=== PATIENT | female | born 1995 | race Caucasian/White ===

== ENCOUNTER 2016-09-30 11:18 | Emergency (ER) | payer BC, OTHER ==
[2016-09-30 11:28] VITALS: BP 137/95
[2016-09-30] MEDS ORDERED: Ondansetron 4 MG/2 ML SDV IV ONE (12:07)
[2016-09-30] MEDS ORDERED: Acetaminophen/HYDROcodone 325-10 MG Tab PO ONE (12:08)
--- NOTE | 2016-09-30 12:14 | EDM.PDOC ---
ED HPI GI/ABDOMINAL - General Chief Complaint: Abdominal Pain Stated Complaint: GAL BLADDER PROBLEM Time Seen by Provider: 09/30/16 12:00 Source of Information: Reports: Patient History Limitations: Reports: No limitations - History of Present Illness INITIAL COMMENTS - FREE TEXT/NARRATIVE: This 20 yo female patient reports to the ED with increased pain in her right upper quadrant. The patient reports she has surgery scheduled fro 10/04/16, but has been in too much pain to wait that long. The patient reports she has been seen through [facility], but was not given any pain medications from that facility. The patient reports the last time she was in the ED she was given IV Dilaudid which worked and some Hydrocodone which worked for her pain. The patient also reports oxycodone works for her pain. The patient reports she has been very nauseated and does not believe she can keep anything down in her stomach. Timing/Duration: Reports: Constant, Getting worse Location: RUQ Quality: Reports: ache Severity: severe Associated Symptoms (-Female): Reports: denies other symptoms Treatments ACUPRESSURIST: Reports: Acetaminophen - Related Data Allergies/ADRs: Allergies Allergy/AdvReac Type Severity Reaction Status Date / Time cephalexin [From Keflex] Allergy Hallucinati Verified 09/30/16 11:29 ons metronidazole [From Flagyl] Allergy Vomiting Verified 09/30/16 11:29 Home Meds: Home Meds FLUoxetine HCl [Prozac] 30 mg PO DAILY 09/01/16 [History] Fluticasone Propionate [Flovent HFA 220 MCG] 220 mcg INH BID 09/01/16 [History] Methylphenidate HCl [Methylphenidate HCl ER] 50 mg PO DAILY 09/01/16 [History] Past Medical History HEENT History: Reports: Impaired vision Respiratory History: Reports: Asthma Gastrointestinal History: Reports: Gastritis, GERD Genitourinary History: Reports: Renal calculus, UTI, recurrent Musculoskeletal History: Reports: Fracture Other Musculoskeletal History: Fr. rt. tib. and left knuckle. Neurological History: Reports: Concussion Psychiatric History: Reports: ADD, Anxiety, Depression Dermatologic History: Reports: Eczema - Infectious Disease History Infectious Disease History: Reports: Chicken pox - Past Surgical History GI Surgical History: Reports: Appendectomy Social & Family History - Family History Family Medical History: Noncontributory - Tobacco Use Smoking Status *Q: Never Smoker Second Hand Smoke Exposure: No - Caffeine Use Caffeine Use: Reports: Coffee - Recreational Drug Use Recreational Drug Use: No ED ROS GENERAL - Review of Systems Review Of Systems: ROS reveals no pertinent complaints other than HPI. ED EXAM, GI/ABD - Physical Exam Exam: See Below Exam Limited By: No limitations General Appearance: alert, WD/WN, moderate distress Eyes: bilateral: normal appearance, EOMI Ears: normal external exam, normal canal, hearing grossly normal, normal TMs Nose: normal inspection, normal mucosa, no blood Throat/Mouth: Normal inspection, Normal lips, Normal teeth, Normal gums, Normal oropharynx, Normal voice, No airway compromise Head: atraumatic, normocephalic Neck: normal inspection, supple, non-tender, full range of motion Respiratory/Chest: no respiratory distress, lungs clear, normal breath sounds, no accessory muscle use, chest non-tender Cardiovascular: normal peripheral pulses, regular rate, rhythm, no edema, no gallop, no JVD, no murmur, no rub GI/Abdominal: normal bowel sounds, no organomegaly, no distention, no abnormal bruit, no mass, tenderness (RUQ) (Female) Exam: Deferred Rectal (Female) Exam: Deferred Back Exam: normal inspection, full range of motion, CVA tenderness (R) Extremities: normal inspection, normal range of motion, non-tender, normal capillary refill, no pedal edema Neurological: alert, oriented, CN II-XII intact, normal cognition, normal gait, normal reflexes, no motor/sensory deficits Psychiatric: normal affect, normal mood Skin Exam: Warm, Dry, Intact, Normal color, No rash Lymphatic: no adenopathy Course - Vital Signs Last Recorded V/S: Last Vital Signs Temp 37.7 C 09/30/16 11:28 Pulse 95 09/30/16 11:28 Resp 20 09/30/16 11:28 BP 137/95 H 09/30/16 11:28 Pulse Ox 100 09/30/16 11:28 - Orders/Labs/Meds Labs: Laboratory Tests 09/30/16 09/30/16 Range/Units 12:15 12:15 Urine Color Yellow (YELLOW) Urine Appearance Slightly cloudy (CLEAR) Urine pH 7.0 (5.0-9.0) Ur Specific [place] 1.015 (1.005-1.030) Urine Protein Negative (NEGATIVE) Urine Glucose (UA) Negative (NEGATIVE) Urine Ketones Negative (NEGATIVE) Urine Occult Blood Small H (NEGATIVE) Urine Nitrite Negative (NEGATIVE) Urine Bilirubin Negative (NEGATIVE) Urine Urobilinogen 0.2 (0.2-1.0) mg/dL Ur Leukocyte Esterase Moderate H (NEGATIVE) Urine RBC 0-5 /HPF Urine WBC 10-20 H (0-5/HPF) /HPF Ur Epithelial Cells Moderate H /HPF Urine Bacteria Moderate H (0-FEW/HPF) /HPF Urine Mucus Few H /LPF Urine Opiates Screen Positive H (NEGATIVE) Ur Oxycodone Screen Negative (NEGATIVE) Urine Methadone Screen Negative (NEGATIVE) Ur Barbiturates Screen Negative (NEGATIVE) U Tricyclic Antidepress Negative (NEGATIVE) Ur Phencyclidine Scrn Negative (NEGATIVE) Ur Amphetamine Screen Negative (NEGATIVE) U Methamphetamines Scrn Negative (NEGATIVE) Urine MDMA Screen Negative (NEGATIVE) U Benzodiazepines Scrn Negative (NEGATIVE) Urine Cocaine Screen Negative (NEGATIVE) U Marijuana (THC) Screen Negative (NEGATIVE) Meds: Medications Discontinued Medications Generic Name Dose Route Start Last Admin Trade Name [place] PRN Reason Stop Dose Admin Acetaminophen/Hydrocodone Bitart 1 tab 09/30/16 12:08 09/30/16 12:42 [place] 325-10 Mg PO 09/30/16 12:09 1 tab ONETIME ONE Administration Ondansetron HCl 4 mg 09/30/16 12:07 09/30/16 12:27 Zofran IV 09/30/16 12:08 4 mg ONETIME ONE Administration - Re-Assessments/Exams Free Text/Narrative Re-Assessment/Exam: 09/30/16 13:09 When the patient was advised of the drug screen results, the patient admitted to getting narcotics from the [place] ED last week. Departure - Departure Time of Disposition: 13:07 Disposition: Home, Self-Care 01 Condition: fair Clinical Impression: Abdominal pain Qualifiers: Abdominal location: right upper quadrant Qualified Code(s): R10.11 - Right upper quadrant pain Instructions: Abdominal Pain, Adult, [id number] Forms: ED Department Discharge Care Plan Goals: The patient was advised of the examination and lab results during the visit. The patient was given an IV dose of Zofran and an oral dose of [place] (10/325) while in the ED. The patient was encouraged to follow-up with her primary care facility or with her surgeon for any additional symptoms or concerns.
== END 2016-09-30 13:20 | disposition home or self-care (01) ==
LOC: DL.ED 11:18
DX: R10.11 Right upper quadrant pain (principal); J45.909 Unspecified asthma, uncomplicated; K21.9 Gastro-esophageal reflux disease without esophagitis; Z87.440 Personal history of urinary (tract) infections; F41.9 Anxiety disorder, unspecified; F32.9 Major depressive disorder, single episode, unspecified; Z90.49 Acquired absence of other specified parts of digestive tract; Z79.899 Other long term (current) drug therapy; Z88.1 Allergy status to other antibiotic agents
CPT/HCPCS: 80305; 81001; 99283; A9270; J2405

== ENCOUNTER 2017-05-11 15:59 | Emergency (ER) | payer BC, OTHER ==
[2017-05-11] MEDS ORDERED: HYDROmorphone 1 MG/ML Syringe IVPUSH ONE ×3 (16:26→20:18)
[2017-05-11] MEDS ORDERED: Sodium Chloride 0.9% 1,000 ML IV ONE (16:26)
[2017-05-11] MEDS ORDERED: Ondansetron 4 MG/2 ML SDV IV ONE (16:26)
--- NOTE | 2017-05-11 16:28 | EDM.PDOC ---
<Dontrell Gaoan - Last Filed: 05/11/17 18:58> ED HPI GENERAL MEDICAL PROBLEM - General Chief Complaint: Flank Pain Stated Complaint: infection [id number] Time Seen by Provider: 05/11/17 16:18 Source of Information: Reports: Patient History Limitations: Reports: No Limitations - History of Present Illness INITIAL COMMENTS - FREE TEXT/NARRATIVE: 21 yo white female c/o bilateral flank pain since this AM. Pt. states felt sick last PM Bilateral Flank Pain Score (Numeric/FACES): 8 - Related Data Allergies Allergy/AdvReac Type Severity Reaction Status Date / Time cephalexin [From Keflex] Allergy Hallucinati Verified 05/11/17 16:05 ons metronidazole [From Flagyl] Allergy Vomiting Verified 05/11/17 16:05 Home Meds: Home Meds Fluticasone Propionate [Flovent HFA 220 MCG] 220 mcg INH BID 09/01/16 [History] Methylphenidate HCl [Methylphenidate HCl ER] 50 mg PO DAILY 09/01/16 [History] Diazepam [Valium] 5 mg PO ONETIME PRN 05/11/17 [History] QUEtiapine Fumarate [Seroquel Xr] 150 mg PO 05/11/17 [History] Venlafaxine [Effexor XR] 150 mg PO DAILY 05/11/17 [History] Venlafaxine [Effexor] 37.5 mg PO DAILY 05/11/17 [History] Past Medical History HEENT History: Reports: Impaired Vision Respiratory History: Reports: Asthma Gastrointestinal History: Reports: Gastritis, GERD Genitourinary History: Reports: Renal Calculus, UTI, Recurrent Musculoskeletal History: Reports: Fracture Other Musculoskeletal History: Fr. rt. tib. and left knuckle. Neurological History: Reports: Concussion Psychiatric History: Reports: ADD, Anxiety, Depression Dermatologic History: Reports: Eczema - Infectious Disease History Infectious Disease History: Reports: Chicken Pox - Past Surgical History GI Surgical History: Reports: Appendectomy, Cholecystectomy, Other (See Below) Other GI Surgeries/Procedures: spincterotomy Social & Family History - Family History Family Medical History: Noncontributory - Tobacco Use Smoking Status *Q: Never Smoker Second Hand Smoke Exposure: No - Caffeine Use Caffeine Use: Reports: Coffee, Soda - Recreational Drug Use Recreational Drug Use: No Course - Vital Signs Last Recorded V/S: Last Vital Signs Temp 98 F 05/11/17 21:03 Pulse 111 H 05/11/17 21:03 Resp 18 05/11/17 21:03 BP 117/62 05/11/17 21:03 Pulse Ox 97 05/11/17 21:03 - Orders/Labs/Meds Labs: Laboratory Tests 05/11/17 05/11/17 05/11/17 Range/Units 16:15 16:15 17:10 WBC 10.9 H (5.0-10.0) 10^3/uL RBC 4.48 (4.2-5.4) 10^6/uL Hgb 13.4 (12.0-16.0) g/dL Hct 40.1 (37.0-47.0) % MCV 89.5 (80-100) fL MCH 29.9 (27.0-34.0) pg MCHC 33.4 (33.0-35.0) g/dL Plt Count 307 (150-450) 10^3/uL Neut % (Auto) 77.0 H (42.2-75.2) % Lymph % (Auto) 16.2 L (20.5-50.1) % [place] % (Auto) 6.1 (2-8) % Eos % (Auto) 0.5 L (1.0-3.0) % Baso % (Auto) 0.2 (0.0-1.0) % Sodium (135-145) mmol/L Potassium (3.6-5.0) mmol/L Chloride (101-111) mmol/L Carbon Dioxide (21.0-31.0) mmol/L Anion Gap BUN (7-18) mg/dL Creatinine (0.6-1.3) mg/dL Est Cr Clr Drug Dosing Estimated GFR (MDRD) BUN/Creatinine Ratio Glucose (74-105) mg/dL Lactic Acid (0.5-2.2) mmol/L Calcium (8.4-10.2) mg/dl Total Bilirubin (0.2-1.0) mg/dL AST (10-42) IU/L ALT (10-60) IU/L Alkaline Phosphatase (42-121) IU/L Total Protein (6.7-8.2) g/dl Albumin (3.2-5.5) g/dl Globulin Albumin/Globulin Ratio Amylase (28-100) U/L Lipase (22-51) U/L Urine Color Light yellow (YELLOW) Urine Appearance Cloudy (CLEAR) Urine pH 8.5 (5.0-9.0) Ur Specific [place] 1.015 (1.005-1.030) Urine Protein Negative (NEGATIVE) Urine Glucose (UA) Negative (NEGATIVE) Urine Ketones Negative (NEGATIVE) Urine Occult Blood Trace-lysed H (NEGATIVE) Urine Nitrite Negative (NEGATIVE) Urine Bilirubin Negative (NEGATIVE) Urine Urobilinogen 0.2 (0.2-1.0) mg/dL Ur Leukocyte Esterase Large H (NEGATIVE) Urine RBC 0-5 /HPF Urine WBC 5-10 H (0-5/HPF) /HPF Ur Epithelial Cells Many H /HPF Urine Bacteria Few (0-FEW/HPF) /HPF Urine Mucus Moderate H /LPF Urine HCG, Qual Negative 05/11/17 05/11/17 05/11/17 Range/Units 17:10 17:10 19:49 WBC (5.0-10.0) 10^3/uL RBC (4.2-5.4) 10^6/uL Hgb (12.0-16.0) g/dL Hct (37.0-47.0) % MCV (80-100) fL MCH (27.0-34.0) pg MCHC (33.0-35.0) g/dL Plt Count (150-450) 10^3/uL Neut % (Auto) (42.2-75.2) % Lymph % (Auto) (20.5-50.1) % [place] % (Auto) (2-8) % Eos % (Auto) (1.0-3.0) % Baso % (Auto) (0.0-1.0) % Sodium 137 (135-145) mmol/L Potassium 3.8 (3.6-5.0) mmol/L Chloride 103 (101-111) mmol/L Carbon Dioxide 24.0 (21.0-31.0) mmol/L Anion Gap 13.8 BUN 8 (7-18) mg/dL Creatinine 0.6 (0.6-1.3) mg/dL Est Cr Clr Drug Dosing TNP Estimated GFR (MDRD) > 60 BUN/Creatinine Ratio 13.33 Glucose 87 (74-105) mg/dL Lactic Acid 0.5 (0.5-2.2) mmol/L Calcium 9.6 (8.4-10.2) mg/dl Total Bilirubin 0.3 (0.2-1.0) mg/dL AST 21 (10-42) IU/L ALT 15 (10-60) IU/L Alkaline Phosphatase 63 (42-121) IU/L Total Protein 8.1 (6.7-8.2) g/dl Albumin 4.5 (3.2-5.5) g/dl Globulin 3.6 Albumin/Globulin Ratio 1.25 Amylase 64 (28-100) U/L Lipase 21 L (22-51) U/L Urine Color (YELLOW) Urine Appearance (CLEAR) Urine pH (5.0-9.0) Ur Specific [place] (1.005-1.030) Urine Protein (NEGATIVE) Urine Glucose (UA) (NEGATIVE) Urine Ketones (NEGATIVE) Urine Occult Blood (NEGATIVE) Urine Nitrite (NEGATIVE) Urine Bilirubin (NEGATIVE) Urine Urobilinogen (0.2-1.0) mg/dL Ur Leukocyte Esterase (NEGATIVE) Urine RBC /HPF Urine WBC (0-5/HPF) /HPF Ur Epithelial Cells /HPF Urine Bacteria (0-FEW/HPF) /HPF Urine Mucus /LPF Urine HCG, Qual Meds: Medications Discontinued Medications Generic Name Dose Route Start Last Admin Trade Name Freq PRN Reason Stop Dose Admin Gentamicin Sulfate 170 mg 05/11/17 18:22 05/11/17 19:19 Gentamicin IV 05/11/17 18:23 170 mg ONETIME ONE Administration Hydromorphone HCl 1 mg 05/11/17 16:26 05/11/17 17:55 Dilaudid IVPUSH 05/11/17 16:27 1 mg ONETIME ONE Administration Hydromorphone HCl 1 mg 05/11/17 18:48 05/11/17 18:56 Dilaudid IVPUSH 05/11/17 18:49 1 mg ONETIME ONE Administration Hydromorphone HCl 1 mg 05/11/17 20:18 05/11/17 20:22 Dilaudid IVPUSH 05/11/17 20:19 1 mg ONETIME ONE Administration Sodium Chloride 1,000 mls @ 999 mls/hr 05/11/17 16:26 05/11/17 18:56 Normal Saline IV 05/11/17 17:26 999 mls/hr .BOLUS ONE Administration Iopamidol 75 ml 05/11/17 16:30 05/11/17 17:21 Isovue-300 (61%) IVPUSH 05/11/17 16:31 75 ml ONETIME ONE Administration Iopamidol 75 ml 05/11/17 16:39 05/11/17 20:20 Isovue-300 (61%) IVPUSH 05/11/17 16:40 Not Given ONETIME ONE Ondansetron HCl 4 mg 05/11/17 16:26 05/11/17 17:54 Zofran IV 05/11/17 16:27 4 mg ONETIME ONE Administration Departure - Departure Disposition: Home, Self-Care 01 Clinical Impression: UTI, Urinary tract infectious disease, Right lower quadrant abdominal pain - Discharge Information Instructions: Urinary Tract Infection, Adult Referrals: PCP,None [Primary Care Provider] - Forms: ED Department Discharge Additional Instructions: increase fluid intake while on antibiotic light diet x 24 hours tylenol 650mg every 4 hours as needed for discomfort cipro 500mg one twice daily for 5 days Recheck in clinic this week <Alcira Barkley - Last Filed: 05/13/17 04:00> ED ROS GENERAL - Review of Systems Review Of Systems: ROS reveals no pertinent complaints other than HPI. ED EXAM, RENAL/ - Physical Exam Exam: See Below Exam Limited By: No Limitations General Appearance: Alert, Mild Distress Eye Exam: Bilateral Eye: EOMI Ears: Normal External Exam Throat/Mouth: Normal Voice Neck: Normal Inspection, Full Range of Motion Respiratory/Chest: No Respiratory Distress GI/Abdominal: Tender (lwer abdomen greater RLQ) Course - Radiology Interpretation Free Text/Narrative:: CT Abdomen, left ovarian cyst, small amount adhesions, fluid filled bowel loops , no sign of obstruction - Re-Assessments/Exams Free Text/Narrative Re-Assessment/Exam: 05/11/17 care assumed at change of shift. Patient reported to have had IV abx initiated and awaiting CT results. Patient resting. Departure - Departure Time of Disposition: 21:01 Condition: Fair
[2017-05-11] MEDS ORDERED: Iopamidol 612 MG/ML 75 ML Bottle IVPUSH ONE ×2 (16:30→16:39)
[2017-05-11] MEDS ORDERED: Gentamicin 40 MG/ML 2 ML Vial IV ONE (18:22)
[2017-05-11 19:53] LABS: CHLORIDE,CL 103 mmol/L (101-111); SODIUM,NA 137 mmol/L (135-145)
[2017-05-11 21:04] VITALS: BP 117/62
== END 2017-05-11 21:08 | disposition home or self-care (01) ==
LOC: DL.ED 15:59
DX: N39.0 Urinary tract infection, site not specified (principal); J45.909 Unspecified asthma, uncomplicated; K21.9 Gastro-esophageal reflux disease without esophagitis; F32.9 Major depressive disorder, single episode, unspecified; Z87.442 Personal history of urinary calculi; Z90.49 Acquired absence of other specified parts of digestive tract; Z98.890 Other specified postprocedural states; Z79.899 Other long term (current) drug therapy; Z88.1 Allergy status to other antibiotic agents
CPT/HCPCS: 36415; 74177; 80053; 81001; 81025; 82150; 83605; 83690; 85025; 87086; 96361; 96374; 96375; 96376; 99284; J1170; J1580; J2405; J7030; Q9967; 87088; 87186

== ENCOUNTER 2017-05-13 15:46 | Emergency (ER) | payer BC, OTHER ==
[2017-05-13 15:57] VITALS: BP 125/86
[2017-05-13] MEDS ORDERED: Sodium Chloride 0.9% 10 ML Syringe FLUSH PRN (16:12)
[2017-05-13] MEDS ORDERED: Ondansetron 4 MG/2 ML SDV IV ONE (16:12)
[2017-05-13] MEDS ORDERED: Sodium Chloride 0.9% 1,000 ML IV ONE (16:12)
[2017-05-13] MEDS ORDERED: HYDROmorphone 1 MG/ML Syringe IVPUSH ONE (16:13)
[2017-05-13 17:05] LABS: CHLORIDE,CL 100 mmol/L (101-111); SODIUM,NA 135 mmol/L (135-145)
--- NOTE | 2017-05-13 18:06 | EDM.PDOC ---
<Shannan Fernando - Last Filed: 05/13/17 18:49> ED HPI GENERAL MEDICAL PROBLEM - General Chief Complaint: Gastrointestinal Problem Stated Complaint: [id number] SWEATING PAIN NAUSEA VOMITING CHILLS Time Seen by Provider: 05/13/17 17:15 Source of Information: Reports: Patient, RN, RN Notes Reviewed History Limitations: Reports: No Limitations - History of Present Illness INITIAL COMMENTS - FREE TEXT/NARRATIVE: Patient presents to the ER with c/o severe right abdominal/right flank pain. She states she was here on 05/11 and treated for a UTI. She states the pain has intensified and she has become nauseated and is vomiting. SHe states she has had a fever and chills as well. Onset: Gradual Location: Reports: Abdomen, Back Quality: Reports: Sharp, Stabbing Severity: Severe Improves with: Reports: None Worsens with: Reports: None Associated Symptoms: Reports: Fever/Chills, Nausea/Vomiting Right Upper Abdominal Pain Score (Numeric/FACES): 9 - Related Data Allergies Allergy/AdvReac Type Severity Reaction Status Date / Time cephalexin [From Keflex] Allergy Hallucinati Verified 05/13/17 16:05 ons metronidazole [From Flagyl] Allergy Vomiting Verified 05/13/17 16:05 Home Meds: Home Meds Fluticasone Propionate [Flovent HFA 220 MCG] 220 mcg INH BID 09/01/16 [History] Methylphenidate HCl [Methylphenidate HCl ER] 50 mg PO DAILY 09/01/16 [History] Diazepam [Valium] 5 mg PO ONETIME PRN 05/11/17 [History] QUEtiapine Fumarate [Seroquel Xr] 150 mg PO DAILY 05/11/17 [History] Venlafaxine [Effexor XR] 150 mg PO DAILY 05/11/17 [History] Venlafaxine [Effexor] 37.5 mg PO DAILY 05/11/17 [History] Past Medical History HEENT History: Reports: Impaired Vision Cardiovascular History: Reports: None Respiratory History: Reports: Asthma Gastrointestinal History: Reports: Gastritis, GERD Genitourinary History: Reports: Renal Calculus, UTI, Recurrent 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 rt. tib. and left knuckle. Neurological History: Reports: Concussion Psychiatric History: Reports: ADD, Anxiety, Depression Endocrine/Metabolic History: Reports: None Hematologic History: Reports: None Immunologic History: Reports: None Oncologic (Cancer) History: Reports: None Dermatologic History: Reports: Eczema - Infectious Disease History Infectious Disease History: Reports: Chicken Pox - Past Surgical History Head Surgeries/Procedures: Reports: None GI Surgical History: Reports: Appendectomy, Cholecystectomy, Other (See Below) Other GI Surgeries/Procedures: spincterotomy Social & Family History - Family History Family Medical History: Noncontributory - Tobacco Use Smoking Status *Q: Never Smoker Second Hand Smoke Exposure: No - Caffeine Use Caffeine Use: Reports: Coffee, Soda - Recreational Drug Use Recreational Drug Use: No ED ROS GENERAL - Review of Systems Review Of Systems: ROS reveals no pertinent complaints other than HPI. ED EXAM, RENAL/ - Physical Exam Exam: See Below Exam Limited By: No Limitations General Appearance: Alert, WD/WN, Anxious, Moderate Distress Eye Exam: Bilateral Eye: Normal Inspection, PERRL Ears: Normal External Exam, Hearing Grossly Normal Nose: Normal Inspection Throat/Mouth: Normal Inspection, Normal Lips, Normal Teeth, Normal Gums, Normal Oropharynx, Normal Voice, No Airway Compromise Head: Atraumatic, Normocephalic Neck: Normal Inspection, Supple, Non-Tender, Full Range of Motion Respiratory/Chest: No Respiratory Distress, Lungs Clear, Normal Breath Sounds, No Accessory Muscle Use, Chest Non-Tender Cardiovascular: Normal Peripheral Pulses, Regular Rate, Rhythm, No Edema, No Gallop, No JVD, No Murmur, No Rub GI/Abdominal: Normal Bowel Sounds, Rigid, Tender (Female) Exam: Deferred Rectal (Female) Exam: Deferred Back Exam: Normal Inspection, CVA Tenderness (R) Extremities: Normal Inspection, Normal Range of Motion, Non-Tender, No Pedal Edema, Normal Capillary Refill Neurological: Alert, Oriented, Normal Cognition, No Motor/Sensory Deficits Psychiatric: Anxious Skin Exam: Warm, Dry, Intact, Normal Color, No Rash Lymphatic: No Adenopathy Course - Vital Signs Last Recorded V/S: Last Vital Signs Temp 37.2 C 05/13/17 15:56 Pulse 120 H 05/13/17 15:56 Resp 16 05/13/17 15:56 BP 125/86 05/13/17 15:56 Pulse Ox 100 05/13/17 15:56 - Orders/Labs/Meds Orders: Active Orders 24 hr Category Date Time Status Peripheral IV Care [RC] . DIRECTED Care 05/13/17 16:12 Active Sodium Chloride 0.9% [Saline Flush] Med 05/13/17 16:12 Active 10 ml FLUSH ASDIRECTED PRN Peripheral IV Insertion Adult [OM.PC] Stat Oth 05/13/17 16:12 Ordered Medication Orders Sodium Chloride (Saline Flush) 10 ml FLUSH ASDIRECTED PRN PRN Reason: Keep Vein Open Last Admin: 05/13/17 16:49 Dose: 10 ml Labs: Laboratory Tests 05/13/17 05/13/17 05/13/17 Range/Units 16:27 16:27 16:40 WBC 10.1 H (5.0-10.0) 10^3/uL RBC 4.79 (4.2-5.4) 10^6/uL Hgb 14.3 (12.0-16.0) g/dL Hct 42.7 (37.0-47.0) % MCV 89.1 (80-100) fL MCH 29.9 (27.0-34.0) pg MCHC 33.5 (33.0-35.0) g/dL Plt Count 234 (150-450) 10^3/uL Neut % (Auto) 81.7 H (42.2-75.2) % Lymph % (Auto) 13.6 L (20.5-50.1) % [place] % (Auto) 4.2 (2-8) % Eos % (Auto) 0.3 L (1.0-3.0) % Baso % (Auto) 0.2 (0.0-1.0) % Sodium (135-145) mmol/L Potassium (3.6-5.0) mmol/L Chloride (101-111) mmol/L Carbon Dioxide (21.0-31.0) mmol/L Anion Gap BUN (7-18) mg/dL Creatinine (0.6-1.3) mg/dL Est Cr Clr Drug Dosing mL/min Estimated GFR (MDRD) BUN/Creatinine Ratio Glucose (74-105) mg/dL Calcium (8.4-10.2) mg/dl Total Bilirubin (0.2-1.0) mg/dL AST (10-42) IU/L ALT (10-60) IU/L Alkaline Phosphatase (42-121) IU/L Total Protein (6.7-8.2) g/dl Albumin (3.2-5.5) g/dl Globulin Albumin/Globulin Ratio Urine Color Yellow (YELLOW) Urine Appearance Cloudy (CLEAR) Urine pH 7.0 (5.0-9.0) Ur Specific [place] 1.020 (1.005-1.030) Urine Protein Negative (NEGATIVE) Urine Glucose (UA) Negative (NEGATIVE) Urine Ketones Trace H (NEGATIVE) Urine Occult Blood Trace-intact H (NEGATIVE) Urine Nitrite Negative (NEGATIVE) Urine Bilirubin Negative (NEGATIVE) Urine Urobilinogen 0.2 (0.2-1.0) mg/dL Ur Leukocyte Esterase Moderate H (NEGATIVE) Urine RBC 5-10 H /HPF Urine WBC 40-50 H (0-5/HPF) /HPF Ur Epithelial Cells Moderate H /HPF Urine Bacteria Moderate H (0-FEW/HPF) /HPF Urine Mucus Rare /LPF Urine Yeast Rare H (0/HPF) /HPF Urine Opiates Screen Negative (NEGATIVE) Ur Oxycodone Screen Negative (NEGATIVE) Urine Methadone Screen Negative (NEGATIVE) Ur Barbiturates Screen Negative (NEGATIVE) U Tricyclic Antidepress Negative (NEGATIVE) Ur Phencyclidine Scrn Negative (NEGATIVE) Ur Amphetamine Screen Negative (NEGATIVE) U Methamphetamines Scrn Negative (NEGATIVE) Urine MDMA Screen Negative (NEGATIVE) U Benzodiazepines Scrn Positive H (NEGATIVE) Urine Cocaine Screen Negative (NEGATIVE) U Marijuana (THC) Screen Negative (NEGATIVE) 05/13/17 Range/Units 16:40 WBC (5.0-10.0) 10^3/uL RBC (4.2-5.4) 10^6/uL Hgb (12.0-16.0) g/dL Hct (37.0-47.0) % MCV (80-100) fL MCH (27.0-34.0) pg MCHC (33.0-35.0) g/dL Plt Count (150-450) 10^3/uL Neut % (Auto) (42.2-75.2) % Lymph % (Auto) (20.5-50.1) % [place] % (Auto) (2-8) % Eos % (Auto) (1.0-3.0) % Baso % (Auto) (0.0-1.0) % Sodium 135 (135-145) mmol/L Potassium 3.5 L (3.6-5.0) mmol/L Chloride 100 L (101-111) mmol/L Carbon Dioxide 21.0 (21.0-31.0) mmol/L Anion Gap 17.5 BUN 6 L (7-18) mg/dL Creatinine 0.7 (0.6-1.3) mg/dL Est Cr Clr Drug Dosing 90.55 mL/min Estimated GFR (MDRD) > 60 BUN/Creatinine Ratio 8.57 Glucose 91 (74-105) mg/dL Calcium 9.7 (8.4-10.2) mg/dl Total Bilirubin 0.7 (0.2-1.0) mg/dL AST 25 (10-42) IU/L ALT 21 (10-60) IU/L Alkaline Phosphatase 72 (42-121) IU/L Total Protein 8.9 H (6.7-8.2) g/dl Albumin 5.0 (3.2-5.5) g/dl Globulin 3.9 Albumin/Globulin Ratio 1.28 Urine Color (YELLOW) Urine Appearance (CLEAR) Urine pH (5.0-9.0) Ur Specific [place] (1.005-1.030) Urine Protein (NEGATIVE) Urine Glucose (UA) (NEGATIVE) Urine Ketones (NEGATIVE) Urine Occult Blood (NEGATIVE) Urine Nitrite (NEGATIVE) Urine Bilirubin (NEGATIVE) Urine Urobilinogen (0.2-1.0) mg/dL Ur Leukocyte Esterase (NEGATIVE) Urine RBC /HPF Urine WBC (0-5/HPF) /HPF Ur Epithelial Cells /HPF Urine Bacteria (0-FEW/HPF) /HPF Urine Mucus /LPF Urine Yeast (0/HPF) /HPF Urine Opiates Screen (NEGATIVE) Ur Oxycodone Screen (NEGATIVE) Urine Methadone Screen (NEGATIVE) Ur Barbiturates Screen (NEGATIVE) U Tricyclic Antidepress (NEGATIVE) Ur Phencyclidine Scrn (NEGATIVE) Ur Amphetamine Screen (NEGATIVE) U Methamphetamines Scrn (NEGATIVE) Urine MDMA Screen (NEGATIVE) U Benzodiazepines Scrn (NEGATIVE) Urine Cocaine Screen (NEGATIVE) U Marijuana (THC) Screen (NEGATIVE) Meds: Medications Generic Name Dose Route Start Last Admin Trade Name Freq PRN Reason Stop Dose Admin Sodium Chloride 10 ml 05/13/17 16:12 05/13/17 16:49 Saline Flush FLUSH 10 ml ASDIRECTED PRN Administration Keep Vein Open Discontinued Medications Generic Name Dose Route Start Last Admin Trade Name [place] PRN Reason Stop Dose Admin Hydromorphone HCl 0.5 mg 05/13/17 16:13 05/13/17 16:51 Dilaudid IVPUSH 05/13/17 16:14 0.5 mg ONETIME ONE Administration Sodium Chloride 1,000 mls @ 999 mls/hr 05/13/17 16:12 05/13/17 16:49 Normal Saline IV 05/13/17 17:12 999 mls/hr .BOLUS ONE Administration Ketorolac Tromethamine 60 mg 05/13/17 18:14 05/13/17 18:28 Toradol IVPUSH 05/13/17 18:15 Not Given ONETIME ONE Ketorolac Tromethamine 30 mg 05/13/17 18:25 05/13/17 18:28 Toradol IVPUSH 05/13/17 18:26 30 mg ONETIME ONE Administration Ondansetron HCl 4 mg 05/13/17 16:12 05/13/17 16:49 Zofran IV 05/13/17 16:13 4 mg ONETIME ONE Administration - Radiology Interpretation Free Text/Narrative:: CT abdomen/pelvis: See rad report CT Results Date: 05/13/17 Departure - Departure Disposition: Against Medical Advice 07 Clinical Impression: UTI, Urinary tract infectious disease Ovarian cyst Qualifiers: Laterality: right Qualified Code(s): N83.201 - Unspecified ovarian cyst, right side - Discharge Information Forms: ED Department Discharge Care Plan Goals: The patient left prior to receiving any additional pain management or scripts for continued management. The patient was encouraged to follow-up with her OB/ [employer] Printer for monitoring of the ovarian cyst. <Cristopher Mills - Last Filed: 05/13/17 19:21> Course - Re-Assessments/Exams Free Text/Narrative Re-Assessment/Exam: 05/13/17 19:15 Patient care was taken over at shift change. The patient was advised of the lab and CT results during the visit. The patient had been given Toradol, Zofran and Dilaudid while in the ED. The patient stated she needed the pain medication given to her at the last visit (05/11/17). The patient was offered Tramadol for pain as well as a script for Tramadol for her ovarian cyst. The patient reported that "she knows her body" and she needs the pain medication given to her during the last visit. The patient was advised that the Tramadol offered is appropriate treatment for an ovarian cyst. At that time, the patient reported that she was not here on 05/11/17 and that she has not had 2 [address]'s in 3 days. The patient ripped out her IV at that time and left prior to receiving a script for Tramadol. Departure - Departure Time of Disposition: 19:20 Condition: Undetermined
[2017-05-13] MEDS ORDERED: Ketorolac 30 MG/ML SDV IVPUSH ONE ×2 (18:14→18:25)
== END 2017-05-13 19:20 | disposition left against medical advice (07) ==
LOC: DL.ED 15:46
DX: N83.201 Unspecified ovarian cyst, right side (principal); N39.0 Urinary tract infection, site not specified; K21.9 Gastro-esophageal reflux disease without esophagitis; F41.9 Anxiety disorder, unspecified; F32.9 Major depressive disorder, single episode, unspecified; J45.909 Unspecified asthma, uncomplicated; Z88.8 Allergy status to other drugs, medicaments and biological substances
CPT/HCPCS: 36415; 74176; 80053; 80305; 81001; 85025; 96374; 96375; 99284; J1170; J1885; J2405; J7030; J7050

== ENCOUNTER 2017-05-18 15:51 | Emergency (ER) | payer BC ==
[2017-05-18] MEDS ORDERED: Amoxicillin/Clavulanate K 875-125 MG Tab PO ONE ×2 (15:52→16:57)
--- NOTE | 2017-05-18 16:08 | EDM.PDOC ---
ED HPI GENERAL MEDICAL PROBLEM - General Chief Complaint: Abdominal Pain Stated Complaint: RIGHT ABD PAIN AND BACK [id number] Time Seen by Provider: 05/18/17 16:07 Source of Information: Reports: Patient History Limitations: Reports: No Limitations - History of Present Illness INITIAL COMMENTS - FREE TEXT/NARRATIVE: 21 yo white female c/o right flank and abdomen pain. Pt. has frequented this and other ER departments with same c/o and requests Narcotics. In review of recent urine culture patient has E.coli that has resistance to Bactrim and Cipro ( which is what she has taken w/o relief) Onset: Unknown/Unsure Onset Date: 05/11/17 Onset Time: 12:00 Location: Reports: Abdomen Quality: Reports: Ache Severity: Moderate Improves with: Reports: None Worsens with: Reports: None Context: Reports: Other (UTI w/ Ecoli resistant to her oral antibiotic) Associated Symptoms: Reports: No Other Symptoms Right Upper Abdomen Pain Score (Numeric/FACES): 9 - Related Data Allergies Allergy/AdvReac Type Severity Reaction Status Date / Time cephalexin [From Keflex] Allergy Hallucinati Verified 05/18/17 16:11 ons metronidazole [From Flagyl] Allergy Vomiting Verified 05/18/17 16:11 Home Meds: Home Meds Fluticasone Propionate [Flovent HFA 220 MCG] 220 mcg INH BID 09/01/16 [History] Methylphenidate HCl [Methylphenidate HCl ER] 50 mg PO DAILY 09/01/16 [History] Diazepam [Valium] 5 mg PO ONETIME PRN 05/11/17 [History] QUEtiapine Fumarate [Seroquel Xr] 150 mg PO DAILY 05/11/17 [History] Venlafaxine [Effexor XR] 150 mg PO DAILY 05/11/17 [History] Venlafaxine [Effexor] 37.5 mg PO DAILY 05/11/17 [History] Sulfamethoxazole/Trimethoprim [Sulfamethoxazole-Tmp Ds Tablet] 1 tab PO BID [History] Past Medical History HEENT History: Reports: Impaired Vision Cardiovascular History: Reports: None Respiratory History: Reports: Asthma Gastrointestinal History: Reports: Gastritis, GERD Genitourinary History: Reports: Renal Calculus, UTI, Recurrent 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 rt. tib. and left knuckle. Neurological History: Reports: Concussion Psychiatric History: Reports: ADD, Anxiety, Depression Endocrine/Metabolic History: Reports: None Hematologic History: Reports: None Immunologic History: Reports: None Oncologic (Cancer) History: Reports: None Dermatologic History: Reports: Eczema - Infectious Disease History Infectious Disease History: Reports: Chicken Pox - Past Surgical History Head Surgeries/Procedures: Reports: None GI Surgical History: Reports: Appendectomy, Cholecystectomy, Other (See Below) Other GI Surgeries/Procedures: spincterotomy Social & Family History - Family History Family Medical History: Noncontributory - Tobacco Use Smoking Status *Q: Never Smoker Second Hand Smoke Exposure: No - Caffeine Use Caffeine Use: Reports: Coffee, Soda - Recreational Drug Use Recreational Drug Use: No ED ROS GENERAL - Review of Systems Review Of Systems: See Below Constitutional: Reports: No Symptoms HEENT: Reports: No Symptoms Respiratory: Reports: No Symptoms Cardiovascular: Reports: No Symptoms Endocrine: Reports: No Symptoms GI/Abdominal: Reports: Abdominal Pain (right side) : Reports: No Symptoms Musculoskeletal: Reports: No Symptoms Skin: Reports: No Symptoms Neurological: Reports: No Symptoms Psychiatric: Reports: No Symptoms Hematologic/Lymphatic: Reports: No Symptoms Immunologic: Reports: No Symptoms ED EXAM, GI/ABD - Physical Exam Exam: See Below Exam Limited By: No Limitations General Appearance: Alert, No Apparent Distress Eyes: Bilateral: EOMI Ears: Normal External Exam Nose: Normal Inspection Throat/Mouth: Normal Inspection, Normal Lips Head: Atraumatic Neck: Normal Inspection Respiratory/Chest: No Respiratory Distress Cardiovascular: Normal Peripheral Pulses GI/Abdominal Exam: Normal Bowel Sounds, Tender (right side) Course - Vital Signs Last Recorded V/S: Last Vital Signs Temp 37.4 C 05/18/17 16:13 Pulse 127 H 05/18/17 16:13 Resp 20 05/18/17 16:13 BP 157/96 H 05/18/17 16:13 Pulse Ox 95 05/18/17 16:13 - Orders/Labs/Meds Orders: Active Orders 24 hr Category Date Time Status CULTURE URINE [RM] Stat Lab 05/18/17 16:41 Uncollected Labs: Laboratory Tests 05/18/17 05/18/17 05/18/17 Range/Units 16:08 16:08 16:47 WBC 7.2 (5.0-10.0) 10^3/uL RBC 4.48 (4.2-5.4) 10^6/uL Hgb 13.4 (12.0-16.0) g/dL Hct 40.5 (37.0-47.0) % MCV 90.4 (80-100) fL MCH 29.9 (27.0-34.0) pg MCHC 33.1 (33.0-35.0) g/dL Plt Count 305 (150-450) 10^3/uL Neut % (Auto) 72.4 (42.2-75.2) % Lymph % (Auto) 18.7 L (20.5-50.1) % [place] % (Auto) 7.3 (2-8) % Eos % (Auto) 1.2 (1.0-3.0) % Baso % (Auto) 0.4 (0.0-1.0) % Urine Color Yellow (YELLOW) Urine Appearance Turbid (CLEAR) Urine pH 8.5 (5.0-9.0) Ur Specific [place] 1.015 (1.005-1.030) Urine Protein Negative (NEGATIVE) Urine Glucose (UA) Negative (NEGATIVE) Urine Ketones Negative (NEGATIVE) Urine Occult Blood Trace-lysed H (NEGATIVE) Urine Nitrite Negative (NEGATIVE) Urine Bilirubin Negative (NEGATIVE) Urine Urobilinogen 0.2 (0.2-1.0) mg/dL Ur Leukocyte Esterase Large H (NEGATIVE) Urine RBC 5-10 H /HPF Urine WBC 30-40 H (0-5/HPF) /HPF Ur Epithelial Cells Many H /HPF Urine Bacteria Moderate H (0-FEW/HPF) /HPF Urine Mucus Many H /LPF Urine Opiates Screen Negative (NEGATIVE) Ur Oxycodone Screen Negative (NEGATIVE) Urine Methadone Screen Negative (NEGATIVE) Ur Barbiturates Screen Negative (NEGATIVE) U Tricyclic Antidepress Negative (NEGATIVE) Ur Phencyclidine Scrn Negative (NEGATIVE) Ur Amphetamine Screen Negative (NEGATIVE) U Methamphetamines Scrn Negative (NEGATIVE) Urine MDMA Screen Negative (NEGATIVE) U Benzodiazepines Scrn Positive H (NEGATIVE) Urine Cocaine Screen Negative (NEGATIVE) U Marijuana (THC) Screen Negative (NEGATIVE) Meds: Medications Discontinued Medications Generic Name Dose Route Start Last Admin Trade Name Freq PRN Reason Stop Dose Admin Amoxicillin/Clavulanate Potassium 1 tab 05/18/17 16:57 10/15/17 17:05 Augmentin 875 Mg/125 Mg PO 05/18/17 16:58 1 tab ONETIME ONE Administration Amoxicillin/Clavulanate Potassium Confirm 05/18/17 17:03 05/18/17 17:06 Augmentin 875 Mg/125 Mg Administered 05/18/17 17:04 Not Given Dose 1 tab .ROUTE .STK-MED ONE Phenazopyridine HCl 190 mg 05/18/17 17:03 05/18/17 17:06 Urinary Pain Relief PO 05/18/17 17:04 190 mg ONETIME ONE Administration Departure - Departure Time of Disposition: 17:29 Disposition: Home, Self-Care 01 Clinical Impression: UTI (urinary tract infection) Qualifiers: Urinary tract infection type: acute cystitis Hematuria presence: with hematuria Qualified Code(s): N30.01 - Acute cystitis with hematuria - Discharge Information Forms: ED Department Discharge Additional Instructions: Rest Increase Fluids ( Water / Cranberry Juice) Take the Oral Antibiotic as prescribed and complete: AUGMENTIN 875mg BID # 20 For pain take the PYRIDIUM 100mg TID # 9 Take the Urine Culture report to your PCP Have urine re-checked by PCP in 3-5 days - My Orders Last 24 Hours: My Active Orders 05/18/17 16:41 CULTURE URINE [RM] Stat - Assessment/Plan Last 24 Hours: My Active Orders 05/18/17 16:41 CULTURE URINE [RM] Stat
[2017-05-18 16:25] VITALS: BP 157/96
[2017-05-18] MEDS ORDERED: Amoxicillin/Clavulanate K 875-125 MG Tab ONE (17:03)
[2017-05-18] MEDS ORDERED: Phenazopyridine 95 MG Tab PO ONE (17:03)
== END 2017-05-18 17:45 | disposition home or self-care (01) ==
LOC: DL.ED 15:51
DX: N30.01 Acute cystitis with hematuria (principal); Z88.8 Allergy status to other drugs, medicaments and biological substances; Z79.899 Other long term (current) drug therapy
CPT/HCPCS: 36415; 80305; 81001; 85025; 99284; A9270